=== PATIENT | female | born 1975 | race Caucasian/White ===

== ENCOUNTER 2019-10-18 09:10 | Emergency (ER) | payer MEDICAID, OTHER ==
[~2019-10-18] VITALS: Ht 170.2 cm; Wt 98.9 kg
[~2019-10-18 09:10] MED LIST: CEPH-37; CITA-77
[2019-10-18 10:43] VITALS: BP 162/77
[2019-10-18] MEDS ORDERED: IBUPROFEN 600 MG TAB PO ONE (10:45)
== END 2019-10-18 12:18 | disposition home or self-care (01) ==
LOC: ER 09:10
DX: E04.1 Nontoxic single thyroid nodule (principal); M54.2 Cervicalgia; Z88.0 Allergy status to penicillin; Z88.1 Allergy status to other antibiotic agents
CPT/HCPCS: 76536

== ENCOUNTER 2019-11-08 18:49 | Emergency (ER) | payer MEDICAID ==
[~2019-11-08] VITALS: Ht 170.2 cm; Wt 98.0 kg
[2019-11-08 20:15] VITALS: BP 141/69
[2019-11-08] MEDS ORDERED: traMADol HCL 50 MG TAB PO ONE (21:00)
[2019-11-08 21:24] LABS: Basophils # (auto) 0 10 ^3/uL (0-0.2); Basophils % (auto) 0.2 % (0.0-2.0); Eosinophils # (auto) 0.1 10 ^3/uL (0-0.8); Eosinophils % (auto) 0.7 % (0.0-7.0); Hematocrit 33.6 % (36.0-46.0); Hemoglobin 11.4 g/dL (12.2-16.2); Lymphocytes % (auto) 19.3 % (10.0-50.0); Mean Corpuscular Hemoglobin 29.7 pg (28.0-32.0); Mean Corpuscular Hgb Conc. 33.9 g/dL (32.0-36.0); Mean Corpuscular Volume 87.5 fL (80.0-100.0); Monocytes # (auto) 0.8 10 ^3/uL (0-1.3); Monocytes % (auto) 7.8 % (0.0-12.0); Neutrophils # (auto) 7.3 10 ^3/uL (1.6-8.6); Platelet Count (auto) 393 10^3/uL (140-450); Red Blood Cells 3.83 10^6/uL (4.0-5.20); Red Cell Distribution Width 12.7 % (11.8-14.3); White Blood Cell 10.2 10^3/uL (4.4-10.8)
[2019-11-08 21:44] LABS: Albumin 3.4 g/dL (3.4-5.0); BUN/Creatinine Ratio 17.7; Calcium 9.4 mg/dL (8.5-10.1); Potassium 4.2 mmol/L (3.5-5.1)
[2019-11-08 21:48] LABS: Bilirubin, Total 0.5 mg/dL (0.2-1.0); Total Protein 8.1 g/dL (6.4-8.2)
== END 2019-11-08 22:42 | disposition home or self-care (01) ==
LOC: ER 18:49
DX: E07.9 Disorder of thyroid, unspecified (principal); R52 Pain, unspecified
CPT/HCPCS: 36415; 80053; 84443; 85025

== ENCOUNTER 2019-11-22 09:06 | Inpatient (IN) | payer MEDICAID ==
[~2019-11-22] VITALS: Ht 170.2 cm; Wt 89.8 kg
[2019-11-22 10:49] LABS: Eosinophils # (auto) 0 10 ^3/uL (0-0.8); Hematocrit 35.6 % (36.0-46.0); Red Blood Cells 4.26 10^6/uL (4.0-5.20)
[2019-11-22 10:51] LABS: Basophils # (auto) 0.1 10 ^3/uL (0-0.2); Basophils % (auto) 0.7 % (0.0-2.0); Eosinophils % (auto) 0.2 % (0.0-7.0); Hemoglobin 11.9 g/dL (12.2-16.2); Lymphocytes # (auto) 2.5 10 ^3/uL (0.4-5.4); Lymphocytes % (auto) 22.9 % (10.0-50.0); Mean Corpuscular Hgb Conc. 33.4 g/dL (32.0-36.0); Mean Corpuscular Volume 83.6 fL (80.0-100.0); Monocytes # (auto) 0.8 10 ^3/uL (0-1.3); Monocytes % (auto) 7.5 % (0.0-12.0); Neutrophils # (auto) 7.4 10 ^3/uL (1.6-8.6); Neutrophils % (auto) 68.7 % (37.0-80.0); Nucleated Red Blood Cells % 0.1 %; Platelet Count (auto) 550 10^3/uL (140-450); Red Cell Distribution Width 14.7 % (11.8-14.3); White Blood Cell 10.8 10^3/uL (4.4-10.8)
[2019-11-22] MEDS ORDERED: ACETAMINOPHEN 500 MG TAB PO ONE (11:00)
[2019-11-22 11:07] LABS: Lactic Acid w/Reflex 2.6 mmol/L (0.4-2.0)
[2019-11-22 11:42] LABS: Urine Bacteria FEW /hpf (None Seen); Urine Blood Negative /uL (Negative); Urine WBC 1 /hpf (0 - 5)
[2019-11-22 12:32] LABS: Albumin 2.7 g/dL (3.4-5.0); Calcium 9.3 mg/dL (8.5-10.1); Potassium 3.8 mmol/L (3.5-5.1)
[2019-11-22 12:36] LABS: BUN/Creatinine Ratio 20.8; Bilirubin, Total 0.4 mg/dL (0.2-1.0); Total Protein 7.5 g/dL (6.4-8.2)
[2019-11-22] MEDS ORDERED: PROPRANOLOL HCL 1 MG/ML VIAL IV ONE (14:00)
[2019-11-22] MEDS ORDERED: SODIUM CHLORIDE 0.9% 1,000 ML IV SCH (14:09)
[2019-11-22] MEDS ORDERED: ACETAMINOPHEN 500 MG TAB PO PRN (14:15)
[2019-11-22] MEDS ORDERED: LORazepam 0.5 MG TAB PO PRN (14:15)
[2019-11-22] MEDS ORDERED: NITROGLYCERIN 0.4 MG SL TAB SL PRN (14:15)
[2019-11-22] MEDS ORDERED: ONDANSETRON HCL 4 MG/2 ML VIAL IV PRN (14:15)
[2019-11-22] MEDS ORDERED: HYDROcodone-ACET 5/325MG TAB PO PRN (14:15)
[2019-11-22] MEDS ORDERED: DOCUSATE SOD 100 MG CAP PO PRN (14:15)
[2019-11-22] MEDS ORDERED: MORPHINE SULF INJ 2 MG/ML SYRINGE 1ML IV PRN ×2 (14:15)
[2019-11-22] MEDS ORDERED: ATENOLOL 25 MG TAB PO ONE (14:30)
[2019-11-22] MEDS ORDERED: KETOROLAC TROMETH 30 MG/ML 1ML VIAL IV ONE (14:30)
--- NOTE | 2019-11-22 15:35 | NUR ---
[facility] after SBAR received. Patient oriented to JADA VALDEZ,RN primary RN,covid unit, 234 room, bed, and unit policies regarding patient care and visiting hours. Patient now on continuous telemetry monitoring, tele box #1 and telemetry reading on arrival to unit is SR 80. Patient placed on bedside oxygen, weighed by bedscale and encouraged to call if they need something. All questions and concerns addressed, patient verbalized understanding. Note:
[2019-11-22 15:52] VITALS: BP 147/66
[2019-11-22] MEDS: ACETAMINOPHEN 325 MG TAB PO PRN ×2 (16:33→22:48)
[2019-11-22 17:00] VITALS: BP 142/62
[2019-11-22 19:05] LABS: Basophils # (auto) 0 10 ^3/uL (0-0.2); Eosinophils # (auto) 0.1 10 ^3/uL (0-0.8); Eosinophils % (auto) 0.8 % (0.0-7.0); Lymphocytes # (auto) 1.9 10 ^3/uL (0.4-5.4); Nucleated Red Blood Cells % 0.1 %
[2019-11-22 19:07] LABS: Basophils % (auto) 0.5 % (0.0-2.0); Hematocrit 32.5 % (36.0-46.0); Hemoglobin 10.8 g/dL (12.2-16.2); Lymphocytes % (auto) 29.5 % (10.0-50.0); Mean Corpuscular Hemoglobin 27.7 pg (28.0-32.0); Mean Corpuscular Hgb Conc. 33.2 g/dL (32.0-36.0); Mean Corpuscular Volume 83.4 fL (80.0-100.0); Monocytes # (auto) 0.6 10 ^3/uL (0-1.3); Monocytes % (auto) 9.3 % (0.0-12.0); Neutrophils # (auto) 3.9 10 ^3/uL (1.6-8.6); Neutrophils % (auto) 59.9 % (37.0-80.0); Platelet Count (auto) 530 10^3/uL (140-450); Red Cell Distribution Width 14.8 % (11.8-14.3); White Blood Cell 6.5 10^3/uL (4.4-10.8)
[2019-11-22 19:25] LABS: Albumin 2.7 g/dL (3.4-5.0); Calcium 9.6 mg/dL (8.5-10.1); Magnesium 2.3 mg/dL (1.6-2.6); Potassium 4.1 mmol/L (3.5-5.1)
[2019-11-22 19:30] LABS: Cholesterol 121 mg/dL (< 200); HDL Cholesterol 29 mg/dL (40-59); LDL Cholesterol 77 mg/dL (< 100); Triglycerides 115 mg/dL (< 150)
[2019-11-22 19:34] LABS: BUN/Creatinine Ratio 21.2; Bilirubin, Total 0.4 mg/dL (0.2-1.0); CRP High Sensitivity 6.31 mg/dL (< 0.3); Total Protein 7.4 g/dL (6.4-8.2)
[2019-11-22 20:00] VITALS: BP 121/63
[2019-11-22 22:00] VITALS: BP 121/63
[2019-11-22] MEDS: ALBUTEROL SULF HFA 90MCG INH 200DOSE IN SCH (22:00)
[2019-11-22] MEDS: BUDESONIDE (INHALATION) 180 MCG IH IN SCH (22:00)
[2019-11-22] MEDS ORDERED: guaiFENesin-DM 100/10mg/5ml SYR PO PRN (22:30)
[2019-11-22] MEDS: DOXYCYCLINE 100MG/250ML 250 ML IV SCH (22:42)
[2019-11-22] MEDS: ATENOLOL 25 MG TAB PO SCH (22:43)
[2019-11-22 23:06] LABS: Alcohol, Urine < 3.0 mg/dL (0-10); Amphetamine Screen, Urine NEGATIVE (NEGATIVE); Barbiturate Scree,Urine NEGATIVE (NEGATIVE); Benzodiazephine Screen, Urine NEGATIVE (NEGATIVE); Cannabinoid Screen, Urine NEGATIVE (NEGATIVE); Cocaine Screen, Urine NEGATIVE (NEGATIVE); Opiate Scree,Urine NEGATIVE (NEGATIVE); Phencyclidine Screen, Urine NEGATIVE (NEGATIVE)
--- NOTE | 2019-11-22 23:40 | NUR ---
IV insertion IV access obtained, via clean sterile technique by inserting 22 gauge catheter at right forearm after 1 attempt. IV secured properly. No trauma to site. Patient tolerated well. IV removal Patient complains of pain to IV during infusion of ABX. IV flushed. No s/s of irritation or infiltration. IV to right hand DC'd with clean sterile technique, catheter fully intact. Pressure dressing applied to site. Patient tolerated well.
--- NOTE | 2019-11-23 02:12 | NUR ---
Patient reports feeling lightheaded and nauseous while ambulating to the bathroom. Vital signs assessed and are follows: BP: 134/59, HR: 65, SPo2 98% on RA
[2019-11-23 05:00] VITALS: BP 132/68
[2019-11-23 05:54] LABS: Basophils # (auto) 0 10 ^3/uL (0-0.2); Basophils % (auto) 0.5 % (0.0-2.0); Eosinophils # (auto) 0.1 10 ^3/uL (0-0.8); Hematocrit 33.3 % (36.0-46.0); Hemoglobin 10.9 g/dL (12.2-16.2); Lymphocytes # (auto) 1.5 10 ^3/uL (0.4-5.4); Lymphocytes % (auto) 26.5 % (10.0-50.0); Mean Corpuscular Hemoglobin 27.2 pg (28.0-32.0); Mean Corpuscular Hgb Conc. 32.7 g/dL (32.0-36.0); Mean Corpuscular Volume 83.1 fL (80.0-100.0); Monocytes # (auto) 0.5 10 ^3/uL (0-1.3); Monocytes % (auto) 8.9 % (0.0-12.0); Neutrophils # (auto) 3.6 10 ^3/uL (1.6-8.6); Neutrophils % (auto) 63.1 % (37.0-80.0); Nucleated Red Blood Cells % 0.1 %; Platelet Count (auto) 508 10^3/uL (140-450); Red Blood Cells 4.01 10^6/uL (4.0-5.20); Red Cell Distribution Width 14.4 % (11.8-14.3); White Blood Cell 5.7 10^3/uL (4.4-10.8)
[2019-11-23] MEDS: ALBUTEROL SULF HFA 90MCG INH 200DOSE IN SCH ×3 (06:00→21:46)
--- NOTE | 2019-11-23 06:00 | NUR ---
Respiratory note: MDI THERAPY HELD AT THIS TIME, PENDING TEST RESULTS FOR COVID-19 PCR. HR 70, RR 18, SPO2 98% ON ROOM AIR. BREATH SOUNDS CLEAR/DIM. NO S/S OF DISTRESS.
[2019-11-23] MEDS: BUDESONIDE (INHALATION) 180 MCG IH IN SCH ×2 (06:03→21:46)
[2019-11-23 06:05] LABS: Potassium 4.1 mmol/L (3.5-5.1)
[2019-11-23 06:11] LABS: Albumin 2.5 g/dL (3.4-5.0); BUN/Creatinine Ratio 22.7; Bilirubin, Total 0.3 mg/dL (0.2-1.0); Calcium 9.2 mg/dL (8.5-10.1); Total Protein 7.1 g/dL (6.4-8.2)
[2019-11-23 08:00] VITALS: BP 122/67
[2019-11-23] MEDS: ACETAMINOPHEN 325 MG TAB PO PRN (08:45)
[2019-11-23] MEDS: ENOXAPARIN SOD 40 MG/0.4 ML SYRINGE SC SCH (08:46)
[2019-11-23] MEDS: ATENOLOL 25 MG TAB PO SCH (08:47)
[2019-11-23] MEDS: DOXYCYCLINE 100MG/250ML 250 ML IV SCH ×2 (08:49→22:21)
[2019-11-23] MEDS ORDERED: ASCORBIC ACID 1,000 MG TAB PO SCH (10:00)
[2019-11-23] MEDS ORDERED: CHOLECALCIFEROL (VITD3) 2,000 UNIT CAP PO SCH (10:00)
[2019-11-23] MEDS ORDERED: ZINC SULFATE 220mg CAP or TAB PO SCH (10:00)
[2019-11-23] MEDS ORDERED: DexAMETHasone SOD PHOS 10MG/1ML VIAL INJ IV SCH (10:00)
[2019-11-23 10:06] VITALS: BP 126/67
[2019-11-23 12:00] VITALS: BP 141/63
[2019-11-23] MEDS ORDERED: NAPROXEN 500 MG TAB PO PRN (13:45)
--- NOTE | 2019-11-23 15:11 | NUR ---
Respiratory note: MDI THERAPY HELD PENDING TEST RESULTS FOR COVID-19. HR 86, RR 18, SPO2 95% ON ROOM AIR. NO S/S OF DISTRESS.
[2019-11-23 16:47] LABS: % Iron Saturation 9.6 % (15-50)
[2019-11-23 16:56] VITALS: BP 132/68
--- NOTE | 2019-11-23 18:00 | NUR ---
Counter Pocket Trimmer informed/aware of COVID results.
--- NOTE | 2019-11-23 19:07 | NUR ---
closing note Patient is sitting up in bed, on room air, breath sounds even and unlabored. Bed at lowest locked position and call light within reach. Will endorse care to NOC RN.
--- NOTE | 2019-11-23 19:09 | NUR ---
Opening Shift Note Assumed care of patient, awake and alert. No S/S of distress/SOB or pain. Instructed on POC and to call for assist PRN, will continue to monitor for changes Q1hr and PRN.
--- NOTE | 2019-11-23 19:30 | NUR ---
Opening Shift Note Assumed care of patient, awake and alert. No S/S of distress/SOB or pain. Patient has redness around iv site patient reports mild discomfort upon flushing. Will change iv. Instructed on POC and to call for assist PRN, will continue to monitor for changes Q1hr and PRN. bed in low position and call light within reach.
--- NOTE | 2019-11-23 20:05 | NUR ---
Opening Shift Note Assumed care of patient. Patient is awake, alert, and oriented X 4. No S/S of distress/SOB or pain. Instructed on POC and to call for assistance as needed. Will continue to monitor for changes Q1hr and PRN.
--- NOTE | 2019-11-23 20:29 | NUR ---
report given to Ingrid. patient denies sob distress or pain.
--- NOTE | 2019-11-23 20:39 | NUR ---
Respiratory note: MDI HELD WAITING FOR COVID RESULTS
[2019-11-23 22:00] VITALS: BP 138/74
[2019-11-24 05:00] VITALS: BP 141/64
[2019-11-24] MEDS: BUDESONIDE (INHALATION) 180 MCG IH IN SCH (06:18)
[2019-11-24] MEDS: ALBUTEROL SULF HFA 90MCG INH 200DOSE IN SCH (06:18)
--- NOTE | 2019-11-24 06:18 | NUR ---
RT NOTE HR 93, RR 14, SPO2 93% ON RA, BS CLEAR AND DIMINISHED. MDI/DPI HELD PENDING COVID RESULTS. NO SIGNS OR SYMPTOMS OF RESPIRATORY DISTRESS NOTED AT THIS TIME.
[2019-11-24] MEDS: ACETAMINOPHEN 325 MG TAB PO PRN (06:36)
[2019-11-24 08:20] VITALS: BP 131/49
[2019-11-24] MEDS: DOXYCYCLINE 100MG/250ML 250 ML IV SCH (08:54)
[2019-11-24] MEDS: ENOXAPARIN SOD 40 MG/0.4 ML SYRINGE SC SCH (08:54)
[2019-11-24] MEDS ORDERED: METOPROLOL SUCCINATE XL 50 MG TAB PO SCH (10:00)
[2019-11-24 10:03] LABS: Basophils # (auto) 0 10 ^3/uL (0-0.2); Basophils % (auto) 0.3 % (0.0-2.0); Eosinophils # (auto) 0 10 ^3/uL (0-0.8); Hematocrit 33.8 % (36.0-46.0); Monocytes # (auto) 0.4 10 ^3/uL (0-1.3); Neutrophils # (auto) 4.7 10 ^3/uL (1.6-8.6); Nucleated Red Blood Cells % 0.1 %; Red Blood Cells 4.11 10^6/uL (4.0-5.20); White Blood Cell 7.2 10^3/uL (4.4-10.8)
[2019-11-24 10:06] LABS: Eosinophils % (auto) 0.2 % (0.0-7.0); Hemoglobin 11.5 g/dL (12.2-16.2); Lymphocytes % (auto) 28.1 % (10.0-50.0); Mean Corpuscular Volume 82.3 fL (80.0-100.0); Monocytes % (auto) 5.8 % (0.0-12.0); Neutrophils % (auto) 65.6 % (37.0-80.0); Platelet Count (auto) 580 10^3/uL (140-450); Red Cell Distribution Width 14.6 % (11.8-14.3)
[2019-11-24 10:11] VITALS: BP 131/52
[2019-11-24 10:26] LABS: Calcium 10.1 mg/dL (8.5-10.1); Potassium 3.3 mmol/L (3.5-5.1)
[2019-11-24 10:29] LABS: BUN/Creatinine Ratio 21.4
[2019-11-24] MEDS ORDERED: POTASSIUM CHL 20 Meq TABLET PO ONE (12:00)
== END 2019-11-24 11:18 | disposition home or self-care (01) | DRG 427 ==
LOC: ER 09:06 → TELE-EAST 09:07 → TELE-WESTW 11-24 08:22
PROVIDERS: ADMIT Hospitalist; ATTEND Internal Medicine
DX: E06.1 Subacute thyroiditis (principal); E44.0 Moderate protein-calorie malnutrition; E66.01 Morbid (severe) obesity due to excess calories; E04.2 Nontoxic multinodular goiter; D47.3 Essential (hemorrhagic) thrombocythemia; D64.9 Anemia, unspecified; I10 Essential (primary) hypertension; E78.5 Hyperlipidemia, unspecified; F41.1 Generalized anxiety disorder; Z20.828 Contact with and (suspected) exposure to other viral communicable diseases; E05.20 Thyrotoxicosis with toxic multinodular goiter without thyrotoxic crisis or storm; Z79.899 Other long term (current) drug therapy; Z68.31 Body mass index [BMI] 31.0-31.9, adult; Z82.49 Family history of ischemic heart disease and other diseases of the circulatory system
CPT/HCPCS: 36415; 71045; 80048; 80053; 80061; 80307; 81001; 82728; 83036; 83540; 83550; 83605; 83615; 83735; 84443; 84484; 85025; 85379; 86141; 87040; 87070; 87086; 87426; 87804; 87880; G0378; J1100; J3490